=== PATIENT | female | born 1990 | race Caucasian/White ===

== ENCOUNTER → 2023-03-29 10:41 | Outpatient (CLI) | payer BC, SELFPAY ==
--- NOTE | ~2023-03-29 | MR_ITS ---
EXAMINATION: MR brain/brain stem wo con DATE: 03/29/2023 11:52 INDICATION: Chronic tension headache. TECHNIQUE: Magnetic resonance imaging (MRI) of the brain and brainstem was performed without intraven ous contrast. COMPARISON: None. FINDINGS: There is no intracranial hemorrhage, acute infarction, or abnormal intracranial mass lesion . The ventricles are normal in size. The orbits are normal. The mastoid air cells are normal. The chay tricles are normal in size. IMPRESSION: 1. Normal brain. Reviewed, dictated and finalized at location A. DLE SANDER IMPRESSION: 1. Normal brain.
== END ==
DX: G44.229 Chronic tension-type headache, not intractable (principal)
CPT/HCPCS: 70551